=== PATIENT | female | born 1980 | race Caucasian/White ===

== ENCOUNTER 2019-12-18 17:54 | Emergency (ER) | payer SELFPAY ==
[2019-12-18 18:04] VITALS: BP 115/69; PULSE 72; TEMP 98.6; BMI 23.8
--- NOTE | 2019-12-18 18:06 | PDOC ---
Rapid Medical Evaluation Time Seen by Provider: 12/18/19 18:03 Medical Evaluation: Allergies Allergy/AdvReac Type Severity Reaction Status Date / Time No Known Allergies Allergy Verified 12/18/19 18:01 12/18/19 18:04 Pt presents for evaluation for a L ankle injury. States she was walking picking up apples when she rolled her ankle. Exam: swelling to the Lateral aspect of the L ankle pain Order: ankle x-ray Pt to proceed to the ER for further evaluation Discharge Disposition - Diagnosis Ankle injury Qualifiers: Encounter type: initial encounter Laterality: left Qualified Code(s): S99.912A - Unspecified injury of left ankle, initial encounter - Referrals - Patient Instructions - Post Discharge Activity
--- NOTE | 2019-12-18 19:16 | PDOC ---
History of Present Illness - General Chief Complaint: Bone Injury Stated Complaint: FALL Time Seen by Provider: 12/18/19 18:03 - History of Present Illness Initial Comments: 12/18/19 19:13 39-year-old female 39-year-old female with a past medical history of fibromyalgia presents for evaluation of left ankle pain. Patient was after taking stepped in a hole yesterday inverted her ankle as she describes it and presents in the emergency room today for evaluation. Past History - Medical History Allergies/Adverse Reactions: Allergies Allergy/AdvReac Type Severity Reaction Status Date / Time No Known Allergies Allergy Verified 12/18/19 18:01 COPD: No Other medical history: FIBROMALGIA - Reproductive History Is Patient Now?: No - Immunization History Immunization Up to Date: Yes - Psycho-Social/Smoking History Smoking History: Never smoked - Substance Abuse Hx (Audit-C & DAST Scrn) How often the patient has a drink containing alcohol: Never Score: In Men: 4 or > Positive; In Women: 3 or > Positive: 0 Screen Result (Pos requires Nsg. Audit-10AR): Negative In the last yr the pt used illegal drug/Rx for NonMed reason: No Score: Yes response is considered Positive: 0 Screen Result (Positive result requires Nsg. DAST-10): Negative Review of Systems - Review of Systems Musculoskeletal: Yes: Joint Pain *Physical Exam - Vital Signs Last Vital Signs Temp Pulse Resp BP Pulse Ox 98.6 F 72 20 115/69 100 12/18/19 18:01 12/18/19 18:01 12/18/19 18:01 12/18/19 18:01 12/18/19 18:01 - Physical Exam 12/18/19 19:13 Left ankle skin color and temperature normal range of motion is slightly limited. There is no tenderness about the proximal fibula or along its distal course. No tenderness about the medial lateral malleolus base of the fifth metatarsal or navicular. Mild tenderness over the ATFL without instability no gross sensorimotor deficits neurovascular intact. Medical Decision Making - Medical Decision Making 12/18/19 19:13 Weight-bear as tolerated with crutches and Aircast no fracture follow-up with Ortho I have reviewed the pathophysiology with the patient. They are in agreement with the treatment plan all questions were answered to their satisfaction. Understanding for follow-up without fail was also conveyed to the patient. Again they are in agreement. Discharge - Discharge Information Problems reviewed: Yes Clinical Impression/Diagnosis: Ankle sprain Ankle injury Qualifiers: Encounter type: initial encounter Laterality: left Qualified Code(s): S99.912A - Unspecified injury of left ankle, initial encounter Condition: Stable Disposition: HOME - Admission No - Follow up/Referral Referrals: Shiv Tony DO [Staff Physician] - - Patient Discharge Instructions Additional Instructions: You may weight-bear as tolerated with use of crutches in the Aircast Tylenol as directed for pain. Return to the emergency room for worsening symptoms. And without fail please follow-up with orthopedic surgery in 1 to 2 days for further evaluation and treatment options. - Post Discharge Activity
== END 2019-12-18 19:32 | disposition home or self-care (01) ==
LOC: JERFT 17:54
DX: S99.912A Unspecified injury of left ankle, initial encounter (principal)
CPT/HCPCS: 73610-TC-LT-FY; 73630-TC-LT; 99284-25